=== PATIENT | female | born 1945 | race Caucasian/White ===

== ENCOUNTER → 2019-04-12 | Outpatient (CLI) | payer MEDICARE ==
--- NOTE | 2019-04-12 13:47 | Diagnostic Imaging Report ---
INDICATION: Chronic bilateral knee pain. COMPARISON: None. FINDINGS: Multiple radiographic views of bilateral knees were obtained. There is no acute fracture or dislocation on either side. Osseous structures are intact. There are advanced tricompartmental osteoarthritic changes. This consists of tricompartmental joint space narrowing with prominent osteophyte formations. There is also mild lateral subluxation of the bilateral tibia in respect to the distal femurs. Note is also made of sclerotic change to the articular surfaces greatest involving the medial tibiofemoral compartments. There is no large joint effusion. No unexpected radiopaque foreign bodies are seen. IMPRESSION: 1. No evidence of acute fracture or dislocation of either knee. 2. Advanced tricompartmental osteoarthritic changes bilaterally. Dictated by: Dictated on workstation # [id number]
== END ==
LOC: RAD FS 13:31
PROVIDERS: ATTEND Nurse Practitioner
DX: M17.0 Bilateral primary osteoarthritis of knee (principal)